=== PATIENT | female | born 1980 | race Caucasian/White ===

== ENCOUNTER 2020-07-08 10:07 | Emergency (ER) | payer MEDICAID ==
[~2020-07-08] VITALS: Ht 149.9 cm; Wt 45.0 kg
--- NOTE | 2020-07-08 10:10 | NUR ---
Pt moved from EMS [facility] to ED [facility], placed in gown and on bedside monitor with 12 lead EKG being performed and exam by MD currently in progress. 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
[2020-07-08] MEDS ORDERED: SODIUM CHLORIDE FLUSH 10ML SYR IVF ONE (10:30)
[2020-07-08] MEDS ORDERED: SODIUM CHLORIDE 0.9% 1,000 ML IV ONE (10:30)
[2020-07-08] MEDS ORDERED: SODIUM CHLORIDE 0.9% 1,000ML IVBOLUS ONE (10:30)
--- NOTE | 2020-07-08 10:34 | NUR ---
instructor bridge from [facility] SON, Francisca, performing second professional system administrator. Pt permission given. automotive specialty technician at bedside for draw at this time as well.
[2020-07-08] MEDS ORDERED: LEVE500T53 PO (10:37)
[2020-07-08] MEDS ORDERED: [UNRECOGNIZED DRUG - CODE] VG (10:37)
[2020-07-08 10:43] LABS: BASOPHILS % (AUTO) 1 % (0-1); EOSINOPHILS % (AUTO) 0 % (1-7); LYMPHOCYTES % (AUTO) 13 % (22-44); MEAN CORPUSCULAR HEMOGLOBIN 32.6 pg (27.0-34.8); MEAN CORPUSCULAR HGB CONC 34.1 g/dL (32.4-35.8); MEAN PLATELET VOLUME 8.5 fL (7.4-10.4); MONOCYTES % (AUTO) 3 % (2-9); NEUTROPHILS % (AUTO) 84 % (42-75); PLATELET COUNT 368 x10^3/uL (130-400); RED BLOOD COUNT 4.18 x10^6/uL (3.82-5.3); RED CELL DISTRIBUTION WIDTH 12.9 % (9.6-15.2)
[2020-07-08 10:46] LABS: MD NO
[2020-07-08 10:53] LABS: ALANINE AMINOTRANSFERASE 23 U/L (12-78); ALBUMIN 3.9 g/dL (3.4-5.0); ANION GAP 8 mmol/L (5-15); CALCIUM 9.1 mg/dL (8.5-10.1); CHLORIDE 106 mmol/L (98-107); CREATININE 0.63 mg/dL (0.55-1.02)
[2020-07-08 10:57] LABS: ALKALINE PHOSPHATASE 84 U/L (45-117); BILIRUBIN,TOTAL 0.5 mg/dL (0.2-1.0); TOTAL PROTEIN 7.8 g/dL (6.4-8.2)
--- NOTE | 2020-07-08 11:17 | NUR ---
Pt able to ambluate through dept to restroom with standby assist entire time out of pt room without issue/sz/fall. UA sample obtained by clean catch and sent to lab.
[2020-07-08 11:48] LABS: MICROSCOPIC NOT IND
[2020-07-08 12:00] VITALS: BP 107/69
--- NOTE | 2020-07-08 12:15 | NUR ---
Pt saline locked and ambulated to restroom with standby assist provided. Pt then back to room and placed back onto bedside monitor. Pt up for d/c now.
--- NOTE | 2020-07-08 12:22 | NUR ---
Note parammiller in EDM - 07/08/20 at 1224 by SALVADOR Visual acuity completed as a repeat per PA request. Right eye pt states he sees nothing but white, left eye is 20/85 but documented as 20/70 as there is no ability to document as 20/85 in available paperwork. PA notified of this discrepancy.
--- NOTE | 2020-07-08 12:24 | NUR ---
Undone note due to documentation on incorrect pt.
== END 2020-07-08 12:41 | disposition home or self-care (01) ==
LOC: ED 12:00
DX: K52.9 Noninfective gastroenteritis and colitis, unspecified (principal); R55 Syncope and collapse; R94.31 Abnormal electrocardiogram [ECG] [EKG]
CPT/HCPCS: 36415; 80053; 81003; 83690; 84703; 85025; 93005; 96360; 96361; 99284; J7030